=== PATIENT | male | born 1975 | race Caucasian/White ===

== ENCOUNTER 2018-01-15 10:41 | Inpatient (IN) | payer MEDICAID ==
[~2018-01-15] VITALS: Ht 172.7 cm; Wt 82.0 kg
[2018-01-15 11:44] LABS: BASOPHILS % (AUTO) 0.5 % (0.0-2.0); EOSINOPHILS % (AUTO) 0.9 % (1.0-6.0); HEMATOCRIT 48.9 % (41-53); HEMOGLOBIN 16.9 g/dL (13.5-17.5); LYMPHOCYTES # (AUTO) 1.4 K/uL (1.0-4.8); LYMPHOCYTES % (AUTO) 12.8 % (22.0-44.0); MEAN CORPUSCULAR HEMOGLOBIN 29.5 pg (26.0-34.0); MEAN CORPUSCULAR HGB CONC 34.5 G/dL (31.0-37.0); MEAN CORPUSCULAR VOLUME 86 fL (80-100); MONOCYTES % (AUTO) 9.1 % (2.0-9.0); NEUTROPHILS # (AUTO) 8.3 K/uL (1.8-7.7); NEUTROPHILS % (AUTO) 76.7 % (40.0-70.0); PLATELET COUNT (AUTO) 323 K/uL (150-450); RED BLOOD CELL COUNT(AUTO) 5.72 MIL/uL (4.50-5.90); RED CELL DISTRIBUTION WIDTH 13.6 % (11.5-14.5)
[2018-01-15 11:51] LABS: AMPHET/METH SCREEN,URINE NEGATIVE (NEGATIVE); BARBITURATE SCREEN, URINE NEGATIVE (NEGATIVE); BENZODIAZEPINES SCREEN,URINE NEGATIVE (NEGATIVE); CANNABINOID SCREEN,URINE NEGATIVE (NEGATIVE); COCAINE SCREEN,URINE NEGATIVE (NEGATIVE); METHADONE SCREEN, URINE NEGATIVE (NEGATIVE); OPIATE SCREEN,URINE NEGATIVE (NEGATIVE)
[2018-01-15 11:54] LABS: ANION GAP 7 mmol/L (8-16); CALCIUM, TOTAL 9.6 mg/dL (8.8-10.5); CARBON DIOXIDE 28 mmol/L (22-29); CHLORIDE 102 mmol/L (98-107); CREATININE 0.95 mg/dL (0.60-1.30); GLOMERULAR FILTR. RATE CALC > 60 mL/min (>60); GLUCOSE,RANDOM 83 mg/dL (70-110); POTASSIUM 4.4 mmol/L (3.5-5.1); SODIUM SERUM 137 mmol/L (136-145); UREA NITROGEN, BLOOD 14 mg/dL (7-18)
[2018-01-15 11:55] LABS: PHENCYCLIDINE SCREEN,URINE NEGATIVE (NEGATIVE)
[2018-01-15 12:00] LABS: ALANINE AMINOTRANSFERASE 31 U/L (12-78); ALBUMIN 4.2 g/dL (3.4-5.0); ALKALINE PHOSPHATASE 95 U/L (46-116); ASPARTATE AMINOTRANSFERASE 13 U/L (15-37); BILIRUBIN,TOTAL 0.3 mg/dL (0.1-1.0); TOTAL PROTEIN, SERUM 8.3 g/dL (6.4-8.2)
[2018-01-15] MEDS ORDERED: LORazepam 1 MG TABLET PO ONE (12:00)
[2018-01-15] MEDS ORDERED: HALOPERIDOL 5 MG TABLET PO ONE (12:00)
[2018-01-15] MEDS ORDERED: HALOPERIDOL 5 MG TABLET PO PRN (12:30)
[2018-01-15] MEDS ORDERED: ZOLPIDEM TARTRATE 10 MG TABLET PO PRN (12:30)
[2018-01-15] MEDS ORDERED: LORazepam 2 MG TABLET PO PRN (12:30)
[2018-01-15 17:26] VITALS: BP 126/83
[2018-01-15] MEDS ORDERED: INFLUENZA VIRUS VACCINE QVS 2017-18 (3YR+)/PF 60 MCG/0.5 ML SYRINGE IM ONE (18:00)
[2018-01-15] MEDS ORDERED: PNEUMOCOCCAL VACCINE POLYVALENT 0.5 ML VIAL [PPSV23] IM ONE (18:00)
[2018-01-16 00:21] VITALS: BP 119/72
[2018-01-16 08:04] VITALS: BP 130/82
[2018-01-16] MEDS ORDERED: IBUPROFEN 600 MG TABLET PO PRN (09:30)
[2018-01-16] MEDS ORDERED: ACETAMINOPHEN 325 MG TABLET PO PRN (09:30)
[2018-01-16 16:34] VITALS: BP 126/69
[2018-01-16] MEDS: ARIPiprazole 5 MG TABLET PO SCH (20:25)
[2018-01-16] MEDS: FLUoxetine HCL 20 MG CAPSULE PO SCH (20:25)
[2018-01-17 06:42] VITALS: BP 120/72
[2018-01-17 08:38] VITALS: BP 120/66
[2018-01-17 16:20] VITALS: BP 116/74
[2018-01-17] MEDS: FLUoxetine HCL 20 MG CAPSULE PO SCH (20:38)
[2018-01-17] MEDS: ARIPiprazole 5 MG TABLET PO SCH (20:38)
[2018-01-18 06:35] VITALS: BP 110/76
[2018-01-18 08:04] VITALS: BP 119/75
[2018-01-18] MEDS ORDERED: FLUO-191 PO ×2 (14:15→14:26)
[2018-01-18] MEDS ORDERED: ARIP5TAB8 PO ×2 (14:15→14:26)
== END 2018-01-18 17:30 | disposition home or self-care (01) | DRG 750 ==
LOC: EMS 10:42 → AHU 13:04 → B2S 13:04
DX: F25.1 Schizoaffective disorder, depressive type (principal); F29 Unspecified psychosis not due to a substance or known physiological condition; Z88.1 Allergy status to other antibiotic agents; Z79.899 Other long term (current) drug therapy; Z81.8 Family history of other mental and behavioral disorders; Z82.49 Family history of ischemic heart disease and other diseases of the circulatory system; Z83.3 Family history of diabetes mellitus
CPT/HCPCS: 99285; G0480

== ENCOUNTER 2018-08-22 19:22 | Emergency (ER) | payer MEDICAID ==
[~2018-08-22] VITALS: Ht 172.7 cm; Wt 86.4 kg
[~2018-08-22 19:22] MED LIST: ARIP5TAB8 PO; FLUO-191 PO
[2018-08-22 19:26] VITALS: BP 149/88
[2018-08-22] MEDS ORDERED: QUET25TA PO (19:39)
[2018-08-22] MEDS ORDERED: BUSP10TA23 PO (19:39)
[2018-08-22 19:55] LABS: BASOPHILS % (AUTO) 0.7 % (0.0-2.0); EOSINOPHILS % (AUTO) 1.5 % (1.0-6.0); HEMATOCRIT 44.5 % (41-53); HEMOGLOBIN 15.1 g/dL (13.5-17.5); LYMPHOCYTES # (AUTO) 1.8 K/uL (1.0-4.8); LYMPHOCYTES % (AUTO) 23.8 % (22.0-44.0); MEAN CORPUSCULAR HGB CONC 33.9 G/dL (31.0-37.0); MEAN CORPUSCULAR VOLUME 85 fL (80-100); MONOCYTES # (AUTO) 0.6 K/uL (0.1-1.0); MONOCYTES % (AUTO) 7.5 % (2.0-9.0); NEUTROPHILS % (AUTO) 66.5 % (40.0-70.0); PLATELET COUNT (AUTO) 291 K/uL (150-450); RED BLOOD CELL COUNT(AUTO) 5.21 MIL/uL (4.50-5.90); RED CELL DISTRIBUTION WIDTH 13.7 % (11.5-14.5)
[2018-08-22 20:02] LABS: AMPHET/METH SCREEN,URINE NEGATIVE (NEGATIVE); BARBITURATE SCREEN, URINE NEGATIVE (NEGATIVE); BENZODIAZEPINES SCREEN,URINE NEGATIVE (NEGATIVE); CANNABINOID SCREEN,URINE NEGATIVE (NEGATIVE); COCAINE SCREEN,URINE NEGATIVE (NEGATIVE); METHADONE SCREEN, URINE NEGATIVE (NEGATIVE); OPIATE SCREEN,URINE NEGATIVE (NEGATIVE)
[2018-08-22 20:04] LABS: PHENCYCLIDINE SCREEN,URINE NEGATIVE (NEGATIVE)
[2018-08-22 20:20] LABS: ANION GAP 6 mmol/L (8-16); CALCIUM, TOTAL 9.3 mg/dL (8.8-10.5); CARBON DIOXIDE 29 mmol/L (22-29); CHLORIDE 104 mmol/L (98-107); CREATININE 0.83 mg/dL (0.60-1.30); GLOMERULAR FILTR. RATE CALC > 60 mL/min (>60); GLUCOSE,RANDOM 111 mg/dL (70-110); POTASSIUM 3.6 mmol/L (3.5-5.1); SODIUM SERUM 139 mmol/L (136-145); UREA NITROGEN, BLOOD 13 mg/dL (7-18)
[2018-08-22 20:25] LABS: ALANINE AMINOTRANSFERASE 38 U/L (12-78); ALBUMIN 3.8 g/dL (3.4-5.0); ALKALINE PHOSPHATASE 107 U/L (46-116); ASPARTATE AMINOTRANSFERASE 17 U/L (15-37); BILIRUBIN,TOTAL 0.2 mg/dL (0.1-1.0); TOTAL PROTEIN, SERUM 7.8 g/dL (6.4-8.2)
== END 2018-08-22 21:00 | disposition left against medical advice (07) ==
LOC: EMS 19:22
DX: R44.0 Auditory hallucinations (principal); F20.9 Schizophrenia, unspecified; Z53.21 Procedure and treatment not carried out due to patient leaving prior to being seen by health care provider
CPT/HCPCS: 36415; 80053; 80307; 85025; G0480

== ENCOUNTER 2018-08-24 19:19 | Emergency (ER) | payer MEDICAID ==
[~2018-08-24 19:19] MED LIST changes: -ARIP5TAB8 PO; +BUSP10TA23 PO; +QUET25TA PO
== END 2018-08-24 19:35 | disposition left against medical advice (07) ==
LOC: EMS 19:19
DX: Z00.8 Encounter for other general examination (principal); Z53.21 Procedure and treatment not carried out due to patient leaving prior to being seen by health care provider

== ENCOUNTER 2018-08-25 07:54 | Emergency (ER) | payer MEDICAID ==
[~2018-08-25] VITALS: Ht 172.7 cm; Wt 81.8 kg
[2018-08-25] MEDS ORDERED: HALOPERIDOL 5 MG TABLET PO ONE (09:30)
[2018-08-25 10:11] VITALS: BP 133/79
== END 2018-08-25 11:42 | disposition home or self-care (01) ==
LOC: EMS 07:56
DX: F29 Unspecified psychosis not due to a substance or known physiological condition (principal); Z88.0 Allergy status to penicillin; Z91.013 Allergy to seafood; Z91.018 Allergy to other foods; Z79.899 Other long term (current) drug therapy

== ENCOUNTER 2019-12-01 17:05 | Emergency (ER) | payer MEDICAID ==
[~2019-12-01] VITALS: Ht 172.7 cm; Wt 81.8 kg
[~2019-12-01 17:05] MED LIST changes: -FLUO-191 PO; -QUET25TA PO
[2019-12-01] MEDS ORDERED: QUET25TA PO (18:34)
[2019-12-01] MEDS ORDERED: SERT100T12 PO (18:35)
[2019-12-01 18:53] LABS: BASOPHILS % (AUTO) 0.7 % (0.0-2.0); EOSINOPHILS % (AUTO) 3.1 % (1.0-6.0); HEMATOCRIT 41.3 % (41-53); LYMPHOCYTES # (AUTO) 1.8 K/uL (1.0-4.8); LYMPHOCYTES % (AUTO) 25.8 % (22.0-44.0); MEAN CORPUSCULAR HEMOGLOBIN 29.2 pg (26.0-34.0); MEAN CORPUSCULAR HGB CONC 33.9 G/dL (31.0-37.0); MEAN CORPUSCULAR VOLUME 86 fL (80-100); MONOCYTES # (AUTO) 0.6 K/uL (0.1-1.0); MONOCYTES % (AUTO) 8.2 % (2.0-9.0); NEUTROPHILS # (AUTO) 4.3 K/uL (1.8-7.7); NEUTROPHILS % (AUTO) 62.2 % (40.0-70.0); PLATELET COUNT (AUTO) 269 K/uL (150-450); RED BLOOD CELL COUNT(AUTO) 4.79 MIL/uL (4.50-5.90); RED CELL DISTRIBUTION WIDTH 14.1 % (11.5-14.5)
[2019-12-01 19:14] LABS: ANION GAP 7 mmol/L (8-16); CALCIUM, TOTAL 8.4 mg/dL (8.8-10.5); CARBON DIOXIDE 27 mmol/L (22-29); CHLORIDE 104 mmol/L (98-107); CREATININE 0.87 mg/dL (0.60-1.30); GLOMERULAR FILTR. RATE CALC > 60 mL/min (>60); GLUCOSE,RANDOM 99 mg/dL (70-110); POTASSIUM 3.6 mmol/L (3.5-5.1); SODIUM SERUM 138 mmol/L (136-145); UREA NITROGEN, BLOOD 11 mg/dL (7-18)
[2019-12-01 19:16] LABS: B-TYPE NATRIURETIC PEPTIDE < 5 pg/mL (0-100)
[2019-12-01 19:23] LABS: ALANINE AMINOTRANSFERASE 22 U/L (12-78); ALBUMIN 3.6 g/dL (3.4-5.0); ALKALINE PHOSPHATASE 86 U/L (46-116); ASPARTATE AMINOTRANSFERASE 18 U/L (15-37); BILIRUBIN,TOTAL 0.2 mg/dL (0.1-1.0); TOTAL PROTEIN, SERUM 7.4 g/dL (6.4-8.2)
[2019-12-01] MEDS ORDERED: QUET100T PO (19:23)
[2019-12-01] MEDS ORDERED: OLANZapine 5 MG TABLET PO ONE (19:30)
[2019-12-01 19:38] LABS: APPEARANCE,URINE CLEAR (CLEAR); BILIRUBIN,URINE NEGATIVE (NEGATIVE); GLUCOSE, URINE (UA) NEGATIVE (NEGATIVE); KETONES,URINE NEGATIVE (NEGATIVE); LEUKOCYTE ESTERASE ,URINE NEGATIVE (NEGATIVE); NITRATE,URINE NEGATIVE (NEGATIVE); OCCULT BLOOD,URINE NEGATIVE (NEGATIVE); PROTEIN,URINE NEGATIVE (NEGATIVE)
[2019-12-01 19:49] LABS: AMPHET/METH SCREEN,URINE NEGATIVE (NEGATIVE); BARBITURATE SCREEN, URINE NEGATIVE (NEGATIVE); BENZODIAZEPINES SCREEN,URINE NEGATIVE (NEGATIVE); CANNABINOID SCREEN,URINE NEGATIVE (NEGATIVE); COCAINE SCREEN,URINE NEGATIVE (NEGATIVE); METHADONE SCREEN, URINE NEGATIVE (NEGATIVE); OPIATE SCREEN,URINE NEGATIVE (NEGATIVE); PHENCYCLIDINE SCREEN,URINE NEGATIVE (NEGATIVE)
[2019-12-01 21:26] VITALS: BP 121/68
== END 2019-12-01 21:26 | disposition home or self-care (01) ==
LOC: EMS 17:05
DX: F25.1 Schizoaffective disorder, depressive type (principal); Z79.899 Other long term (current) drug therapy; Z88.1 Allergy status to other antibiotic agents; Z91.013 Allergy to seafood
CPT/HCPCS: 36415; 71045; 80053; 80307; 81003; 83880; 84484; 85025; 93005; 99285; G0480

== ENCOUNTER 2021-03-01 14:05 | Emergency (ER) | payer MEDICAID ==
[~2021-03-01] VITALS: Ht 172.7 cm; Wt 108.2 kg
[~2021-03-01 14:05] MED LIST changes: -BUSP10TA23 PO; +QUET100T PO; +SERT-162 PO
[2021-03-01] MEDS ORDERED: LURA40TA2 PO (14:09)
[2021-03-01 14:33] VITALS: BP 135/79
== END 2021-03-01 15:19 | disposition home or self-care (01) ==
LOC: EMS 14:12
DX: K59.00 Constipation, unspecified (principal); K62.89 Other specified diseases of anus and rectum; F41.9 Anxiety disorder, unspecified; F32.9 Major depressive disorder, single episode, unspecified; F20.9 Schizophrenia, unspecified
CPT/HCPCS: 99283

== ENCOUNTER 2021-03-02 13:41 | Emergency (ER) | payer MEDICAID ==
[~2021-03-02] VITALS: Ht 172.7 cm; Wt 104.5 kg
[~2021-03-02 13:41] MED LIST changes: +LURA40TA2 PO
[2021-03-02 16:09] VITALS: BP 121/70
== END 2021-03-02 16:09 | disposition home or self-care (01) ==
LOC: EMS 13:41
DX: K64.9 Unspecified hemorrhoids (principal); K59.00 Constipation, unspecified; F41.9 Anxiety disorder, unspecified; F32.9 Major depressive disorder, single episode, unspecified; F20.9 Schizophrenia, unspecified; Z88.1 Allergy status to other antibiotic agents; Z91.013 Allergy to seafood; Z91.018 Allergy to other foods
CPT/HCPCS: 99283

== ENCOUNTER 2021-03-30 17:23 | Emergency (ER) | payer MEDICAID ==
[~2021-03-30] VITALS: Ht 172.7 cm; Wt 102.7 kg
[~2021-03-30 17:23] MED LIST changes: -QUET100T PO
[2021-03-30 17:29] VITALS: BP 121/79
== END 2021-03-30 18:18 | disposition home or self-care (01) ==
LOC: EMS 17:23
DX: K04.7 Periapical abscess without sinus (principal); F41.9 Anxiety disorder, unspecified; F32.9 Major depressive disorder, single episode, unspecified; Z79.899 Other long term (current) drug therapy
CPT/HCPCS: 99283; Z7502

== ENCOUNTER 2022-03-03 16:58 | Emergency (ER) | payer MEDICAID ==
[~2022-03-03] VITALS: Ht 172.7 cm; Wt 81.8 kg
[2022-03-03] MEDS ORDERED: POLY238P PO (19:47)
[2022-03-03] MEDS ORDERED: PHEN26CR2 RC (19:47)
[2022-03-03 19:58] VITALS: BP 132/89
== END 2022-03-03 20:04 | disposition home or self-care (01) ==
LOC: EMS 17:18
DX: K64.8 Other hemorrhoids (principal); K64.4 Residual hemorrhoidal skin tags; K59.00 Constipation, unspecified; F41.9 Anxiety disorder, unspecified; F32.A Depression, unspecified; F25.9 Schizoaffective disorder, unspecified; Z88.1 Allergy status to other antibiotic agents; Z91.014 Allergy to mammalian meats; Z91.018 Allergy to other foods
CPT/HCPCS: 99282; Z7502

== ENCOUNTER 2022-08-15 18:52 | Emergency (ER) | payer MEDICAID ==
[~2022-08-15] VITALS: Ht 172.7 cm; Wt 104.5 kg
[~2022-08-15 18:52] MED LIST changes: +PHEN26CR2 RC; +POLY238P PO
[2022-08-15 18:55] VITALS: BP 137/82
== END 2022-08-16 | disposition left against medical advice (07) ==
LOC: EMS 18:52
DX: R07.9 Chest pain, unspecified (principal); Z53.21 Procedure and treatment not carried out due to patient leaving prior to being seen by health care provider

== ENCOUNTER 2024-07-15 19:50 | Emergency (ER) | payer MEDICAID ==
[~2024-07-15] VITALS: Ht 172.7 cm; Wt 110.0 kg
[2024-07-15 20:25] VITALS: BP 129/82; PULSE 110; RESP 18; TEMP 100.2; O2SAT 93
[2024-07-15 22:51] LABS: BASOPHILS % (AUTO) 0.7 % (0.0-2.0); EOSINOPHILS % (AUTO) 2.6 % (1.0-6.0); HEMOGLOBIN 14.2 g/dL (13.5-17.5); LYMPHOCYTES # (AUTO) 2.1 K/uL (1.0-4.8); LYMPHOCYTES % (AUTO) 20.3 % (22.0-44.0); MEAN CORPUSCULAR VOLUME 85 fL (80-100); MONOCYTES # (AUTO) 0.7 K/uL (0.1-1.0); MONOCYTES % (AUTO) 6.9 % (2.0-9.0); NEUTROPHILS # (AUTO) 7.3 K/uL (1.8-7.7); NEUTROPHILS % (AUTO) 69.5 % (40.0-70.0); PLATELET COUNT (AUTO) 265 K/uL (150-450); RED BLOOD CELL COUNT(AUTO) 5.08 MIL/uL (4.50-5.90); RED CELL DISTRIBUTION WIDTH 14.6 % (11.5-14.5); WHITE BLOOD COUNT (AUTO) 10.5 K/uL (4.5-11.0)
[2024-07-15 23:05] LABS: ANION GAP 11 mmol/L (8-16); CALCIUM, TOTAL 9.4 mg/dL (8.8-10.5); CARBON DIOXIDE 27 mmol/L (22-29); CHLORIDE 103 mmol/L (98-107); CREATININE 1.14 mg/dL (0.60-1.30); GLOMERULAR FILTR. RATE CALC > 60 mL/min (>60); GLUCOSE,RANDOM 117 mg/dL (70-110); POTASSIUM 3.7 mmol/L (3.5-5.1); SODIUM SERUM 141 mmol/L (136-145); UREA NITROGEN, BLOOD 20 mg/dL (7-18)
[2024-07-15 23:11] LABS: ALANINE AMINOTRANSFERASE 34 U/L (12-78); ALBUMIN 3.7 g/dL (3.4-5.0); ALKALINE PHOSPHATASE 101 U/L (46-116); ASPARTATE AMINOTRANSFERASE 18 U/L (15-37); BILIRUBIN,TOTAL 0.3 mg/dL (0.1-1.0); LACTATE DEHYDROGENASE 148 U/L (85-227); TOTAL PROTEIN, SERUM 7.4 g/dL (6.4-8.2)
[2024-07-15 23:14] LABS: LACTIC ACID 1.1 mmol/L (0.4-2.0)
[2024-07-15] MEDS ORDERED: CEPH-558 PO (23:20)
[2024-07-15] MEDS ORDERED: TERB250T90 PO (23:20)
[2024-07-15] MEDS ORDERED: CLOT15CR29 TP (23:20)
[2024-07-15] MEDS ORDERED: IBUP-1554 PO (23:20)
[2024-07-15] MEDS ORDERED: HYDR-4072 PO (23:20)
[2024-07-15] MEDS: ACETAMINOPHEN 500 MG TABLET PO ONE (23:35)
[2024-07-15] MEDS: IBUPROFEN 600 MG TABLET PO ONE (23:35)
== END 2024-07-16 01:04 | disposition home or self-care (01) ==
LOC: EMS 19:55
DX: L03.031 Cellulitis of right toe (principal); B35.1 Tinea unguium; B35.6 Tinea cruris; F25.1 Schizoaffective disorder, depressive type; Z88.1 Allergy status to other antibiotic agents; Z91.013 Allergy to seafood; Z91.014 Allergy to mammalian meats
CPT/HCPCS: 71045; 80053; 83605; 83615; 84145; 85025; 85730; 87040; 99285; 36415-L1; 36415-TC